=== PATIENT | female | born 1940 | race Asian ===

== ENCOUNTER 2016-06-16 06:28 | Day surgery (SDC) | payer MEDICARE, MEDICAID ==
[~2016-06-16] VITALS: Ht 162.6 cm; Wt 89.9 kg
[~2016-06-16 06:28] MED LIST: ALPHAGAN-P5 ML OU; CORDARONE200 MG PO; COREG DPS3.125 MG PO; COSOPT PLUS DPS10 ML OU; COUMADIN2.5 MG PO; COUMADIN5 MG PO; DUONEB DPS3 ML IH; LEVEMIR100 UNIT/1 SQ; MARYS PO; NOVOLIN 70100 UNITS/ SQ; ROCALTROL DPS0.5 MCG PO; SYNTHROID DPS0.05 MG PO; TRUSOPT 2% DPS10 ML OU; TYLENOL-DPS650 MG PR; ZANTAC DPS150 MG PO
== END 2016-06-16 10:50 | disposition home or self-care (01) ==
LOC: RAD.S 06:28
PROC: B51W1ZZ Fluoroscopy of Dialysis Shunt/Fistula using Low Osmolar Contrast (ICD-10-PCS; principal; 2016-06-16)
DX: T82.858A Stenosis of other vascular prosthetic devices, implants and grafts, initial encounter (principal); N18.6 End stage renal disease; Z88.0 Allergy status to penicillin; Z88.7 Allergy status to serum and vaccine; Z79.899 Other long term (current) drug therapy

== ENCOUNTER 2016-08-13 06:38 | Day surgery (SDC) | payer MEDICARE, MEDICAID ==
[~2016-08-13] VITALS: Ht 162.6 cm; Wt 90.0 kg
== END 2016-08-13 09:50 | disposition home or self-care (01) ==
LOC: RAD.S 06:38 → EDSTATUS 08:00 → RAD.S 09:50
PROC: B51NYZZ Fluoroscopy of Left Upper Extremity Veins using Other Contrast (ICD-10-PCS; principal; 2016-08-13)
DX: T82.858A Stenosis of other vascular prosthetic devices, implants and grafts, initial encounter (principal); N18.6 End stage renal disease; Z88.0 Allergy status to penicillin; Z88.7 Allergy status to serum and vaccine; Z79.899 Other long term (current) drug therapy